=== PATIENT | female | born 1935 | race Caucasian/White ===

== ENCOUNTER 2016-12-27 10:05 | Emergency (ER) | payer OTHER ==
[~2016-12-27] VITALS: Ht 170.2 cm; Wt 42.0 kg
[~2016-12-27 10:05] MED LIST: ACET-1256 PO; ATV/1 PO; DLN100 PO; MECL1TAB40 PO; PHEN32.44 PO; ZNTT/150 PO; [UNRECOGNIZED DRUG - CODE] PO
[2016-12-27 10:07] VITALS: Ht 170.2 cm; Wt 42.0 kg
[2016-12-27] MEDS ORDERED: SODIUM CHLORIDE 0.9% 500ML 500 ML IV STA ×2 (10:23→13:34)
[2016-12-27 10:52] LABS: BASO % 0.1 %; BASO ABS # 0.01 K/uL (0-0.2); COMPLETE YES; EOS % 0.6 %; HEMATOCRIT 41.2 % (37-47); IG% 0.5 %; LYMPH % 19.2 %; LYMPH ABS # 1.84 K/uL (1.2-3.4); MEAN CELL VOLUME 100.5 fL (80-100); MEAN CORPUSCULAR HEMOGLOBIN 34.6 pg (25-34); MEAN CORPUSCULAR HGB CONC 34.5 g/dl (32-36); MEAN PLATELET VOLUME 9.1 fL (7.4-10.4); MONO % 10.7 %; NEUT % 68.9 %; PLATELET COUNT 359 K/uL (130-400)
[2016-12-27 11:24] LABS: BUN/CREATININE RATIO 5.3 (10-20); CREATININE 0.74 mg/dl (0.60-1.20)
[2016-12-27 11:25] LABS: CALCIUM 8.7 mg/dl (8.5-10.1)
[2016-12-27 11:36] LABS: PHENOBARBITAL 19.1 mcg/mL (15.0-40.0)
[2016-12-27 13:18] LABS: URINE APPEARANCE CLEAR (CLEAR); URINE BILIRUBIN NEG (NEG); URINE COLOR YELLOW; URINE NITRITE NEG (NEG); URINE SPECIFIC GRAVITY 1.007 (1.000-1.030); UROBILINOGEN NEG (NEG); ZZUR CULT IF INDIC CLEAN CATCH NO
[2016-12-27 13:22] LABS: MANUAL MICROSCOPIC REQUIRED? NO; REVIEW REQ? NO
[2016-12-27] MEDS ORDERED: METRONIDAZOLE 250 MG TAB PO STA (14:34)
[2016-12-27] MEDS ORDERED: POTASSIUM CHLORIDE 20 MEQ TABCR PO STA (14:34)
[2016-12-27] MEDS ORDERED: POTA20TA16 PO (14:38)
[2016-12-27] MEDS ORDERED: METR-163 PO (14:38)
--- NOTE | 2016-12-27 14:39 | EMERGENCY ROOM VISIT NOTE ---
History Report prepared by Jb: Lynn Jain Under the Supervision of: Dr. Bryan Childs M.D. First contact with patient: 10:15 Chief Complaint: DIARRHEA Stated Complaint: POSSIBLE C DIFF PER DR MCCABE History of Present Illness The patient is an 81 year old female who presents to the Emergency Room with complaints of an episode of diarrhea starting nine days ago. The patient complains of abdominal pain and worsening weakness. She reports that she went to [facility] and states that they gave her Imodium. She reports that she has been having an episode of diarrhea every 20 minutes that is caramel in color and produces about 2 ounces each time. She states that the episodes have started to slacken off, but that she is still wearing a diaper. She notes that she is experiencing leg swelling and loss of appetite. The patient denies any fevers or hematochezia. The patient notes that she thinks she was on an antibiotic six months ago for bronchitis. Source of History: patient Onset: nine days ago Position: other (global) Quality: other (global) Timing: other (episode) Associated Symptoms: + abdominal pain, + weakness, No fevers, No hematochezia Note: The patient complains of leg swelling and loss of appetite. Review of Systems See HPI for pertinent positives & negatives. A total of 10 systems reviewed and were otherwise negative. Past Medical & Surgical Medical Problems: (1) Irritable bowel disease Family History Patient reports no known family medical history. Social History Smoking Status: Current Every Day Smoker Housing Status: lives with family Occupation Status: retired Current/Historical Medications Scheduled Iron W/ Vitamins (Geritol Tonic), 1 DOSE PO DIRECTED Metronidazole (Flagyl), 500 MG PO TID Phenobarbital (Phenobarbital), 32.4 MG PO TID Phenytoin Sodium (Dilantin), 1 CAP PO TID Potassium Ext Rel (Klor-Con), 20 MEQ PO DAILY Ranitidine (Zantac), 150 MG PO DAILY Scheduled PRN Acetaminophen (Tylenol), 500 MG PO DIRECTED PRN for Pain Lorazepam (Ativan), 0.5-1 MG PO DAILY PRN for Anxiety/Agitation Meclizine HCl (Meclizine HCl), 1 TAB PO TID PRN for Dizziness or Vertigo Allergies Coded Allergies: Cephalosporins (Verified Allergy, Severe, HIVES, SWEATS, CHEST PAIN, NAUSEA, 12/27/16) Clarithromycin (Verified Allergy, Severe, ANGIOEDEMA, 12/27/16) Sulfa Antibiotics (Verified Allergy, Severe, HIVES, 12/27/16) Tramadol (Verified Allergy, Severe, "HEART POUNDS", SWEATS, 12/27/16) Ciprofloxacin (Verified Allergy, Intermediate, DIZZINESS, BAD DREAMS, 12/27) Ondansetron (Verified Allergy, Intermediate, VOMITING, 12/27/16) Uncoded Allergies: MOZERELLA CHEESE (Allergy, Severe, HIVES, 04/30/16) Physical Exam Vital Signs Date Time Temp Pulse Resp B/P (MAP) Pulse Ox O2 Delivery O2 Flow Rate FiO2 12/27/16 15:08 36.7 60 16 172/85 96 12/27/16 14:55 60 16 172/85 96 Room Air 12/27/16 13:15 67 18 163/82 12/27/16 11:15 85 18 173/85 96 12/27/16 10:07 36.7 86 18 160/88 97 Room Air Physical Exam GENERAL: Patient is elderly and angry appearing, in no acute distress. HEENT: No acute trauma, normocephalic atraumatic, mucous membranes are dry, no nasal congestion, no scleral icterus. NECK: No stridor, no adenopathy, no meningismus, trachea is midline. LUNGS: No dyspnea. Clear to auscultation and equal bilaterally. No wheeze, no rhonchi. HEART: Regular rate and rhythm. No murmurs, rubs, gallops appreciated. ABDOMEN: Soft, nontender, bowel sounds positive, no masses appreciated, no peritonitis. BACK: No midline tenderness, no CVA tenderness EXTREMITIES: Normal motion all extremities, no cyanosis, no edema. NEUROLOGIC: Alert and oriented, no acute motor or sensory deficits, no focal weakness, cranial nerves grossly intact. SKIN: No rash, no jaundice, no diaphoresis. Medical Decision & Procedures Laboratory Results 12/27/16 10:45 Red Blood Count 4.10, Mean Corpuscular Volume 100.5, Mean Corpuscular Hemoglobin 34.6, Mean Corpuscular Hemoglobin Concent 34.5, Mean Platelet Volume 9.1, Neutrophils (%) (Auto) 68.9, Lymphocytes (%) (Auto) 19.2, Monocytes (%) ( Auto) 10.7, Eosinophils (%) (Auto) 0.6, Basophils (%) (Auto) 0.1, Neutrophils # (Auto) 6.61, Lymphocytes # (Auto) 1.84, Monocytes # (Auto) 1.03, Eosinophils # ( Auto) 0.06, Basophils # (Auto) 0.01 12/27/16 10:45 Test 12/27/16 10:45 12/27/16 12:15 White Blood Count 9.60 K/uL (4.8-10.8) Red Blood Count 4.10 M/uL (4.2-5.4) Hemoglobin 14.2 g/dL (12.0-16.0) Hematocrit 41.2 % (37-47) Mean Corpuscular Volume 100.5 fL (80-100) Mean Corpuscular Hemoglobin 34.6 pg (25-34) Mean Corpuscular Hemoglobin Concent 34.5 g/dl (32-36) Platelet Count 359 K/uL (130-400) Mean Platelet Volume 9.1 fL (7.4-10.4) Neutrophils (%) (Auto) 68.9 % Lymphocytes (%) (Auto) 19.2 % Monocytes (%) (Auto) 10.7 % Eosinophils (%) (Auto) 0.6 % Basophils (%) (Auto) 0.1 % Neutrophils # (Auto) 6.61 K/uL (1.4-6.5) Lymphocytes # (Auto) 1.84 K/uL (1.2-3.4) Monocytes # (Auto) 1.03 K/uL (0.11-0.59) Eosinophils # (Auto) 0.06 K/uL (0-0.5) Basophils # (Auto) 0.01 K/uL (0-0.2) RDW Standard Deviation 47.2 fL (36.4-46.3) RDW Coefficient of Variation 13.0 % (11.5-14.5) Immature Granulocyte % (Auto) 0.5 % Immature Granulocyte # (Auto) 0.05 K/uL (0.00-0.02) Anion Gap 8.0 mmol/L (3-11) Est Creatinine Clear Calc Drug Dose 38.9 ml/min Estimated GFR () 87.4 Estimated GFR (Non- 75.4 BUN/Creatinine Ratio 5.3 (10-20) Calcium Level 8.7 mg/dl (8.5-10.1) Phenytoin (Dilantin) Level 9.7 mcg/mL (10-20) Phenobarbital Level 19.1 mcg/mL (15.0-40.0) Urine Color YELLOW Urine Appearance CLEAR (CLEAR) Urine pH 8.0 (4.5-7.5) Urine Specific [place] 1.007 (1.000-1.030) Urine Protein NEG (NEG) Urine Glucose (UA) NEG (NEG) Urine Ketones NEG (NEG) Urine Occult Blood NEG (NEG) Urine Nitrite NEG (NEG) Urine Bilirubin NEG (NEG) Urine Urobilinogen NEG (NEG) Urine Leukocyte Esterase NEG (NEG) Urine WBC (Auto) 0 /hpf (0-5) Urine RBC (Auto) 0-4 /hpf (0-4) Urine Hyaline Casts (Auto) 0 /lpf (0-5) Urine Epithelial Cells (Auto) 5-10 /lpf (0-5) Urine Bacteria (Auto) NEG (NEG) Date/Time Source Procedure Growth Status 12/27/16 12:15 Stool C.difficile Toxin B Gene (PCR) - Final Positive for C. difficile toxin B gene Complete Laboratory results as reviewed by me. Medications Administered Medications (Trade) Dose Ordered Sig/Car Route Start Time Stop Time Status Last Admin Dose Admin Sodium Chloride 500 ml @ 999 mls/hr Q31M STAT IV 12/27/16 10:23 12/27/16 10:53 DC 12/27/16 10:23 999 MLS/HR Sodium Chloride 500 ml @ 999 mls/hr Q31M STAT IV 12/27/16 13:34 12/27/16 14:04 DC 12/27/16 13:34 999 MLS/HR Metronidazole (Flagyl Tab) 500 mg NOW STAT PO 12/27/16 14:34 12/27/16 14:35 DC 12/27/16 14:53 500 MG Potassium Chloride (Klor-Con M10) 20 meq NOW STAT PO 12/27/16 14:48 12/27/16 14:49 DC 12/27/16 14:48 20 MEQ ED Course 1015: The patient was evaluated in room B5. A complete history and physical exam was performed. 1023: Ordered NSS 500 ml @ 999 mls/hr IV. 1124: I reevaluated the patient. She is resting comfortably. She is currently unable to provide stool or a urine sample at this time, but will try again. 1333: I reevaluated the patient. She is happy and smiling. She is thanking us for our care. I decided we would give her more IV fluids and await the stool samples results. 1334: Ordered NSS 500 ml @ 999 mls/hr IV. 1424: Discussed the patient's case with Dr. Chelo Carlson. She would feel comfortable with the patient going home if the patient can ambulate safely. 1434: Ordered Potassium Chloride 20 meq PO, Flagyl Tab 500 mg PO. 1436: Reevaluated the patient. She is smiling, happy, and looking forward to going home. She feels that she can get around home safely. She notes that she has previously been on Flagyl without any problems. Discussed results and discharge instructions: She verbalized understanding and agreement. The patient is ready for discharge. Medical Decision Medication Reconciliation: I attest that I have personally reviewed the patient 's current medication list. Blood pressure screening: Patient was found to have an elevated blood pressure and was referred to their primary doctor for recheck and further treatment. Differential: Viral, Bacterial, Parasitic, Iatrogenic, C-Diff, Malabsorption, Irritable Bowel Disease, IBS, Ischemic Bowel, amongst other pathologies entertained. 81 yr old frail woman who initially was a bit agitated that she was told to come to ED though by end of stay in good spirits and feeling well. She actually looks much better with some IV fluids and I feel she was somewhat dehydrated from the diarrhea she has been having. She has not clear risk factors for Cdiff but with symptoms felt reasonable testing, though did by exam and story seem low risk. Labs look good other than some mild HypoK and some difficulty obtaining suitable stool sample. After a few hours Cdiff did return positive. Discussed need for prolonged treatment. Discussed with Clinical Pharmacist who feels that flagyl 500 tid should be acceptable in this patient. I reviewed side effects of Flagyl with patient. She is stable, feels well, no abdominal pain nor TTP, normal labs and in no distress. I feel she is safe for discharge. Patient feels she will be perfectly fine at home. I have made it clear she can return at any time if worsening or other concerns. I discussed cause with her PCP to make her aware as well. Consults Time Called: [id number] Consulting Physician: Dr. Chelo Carlson Returned Call: [phone] Discussed the patient's case with Dr. Chelo Carlson. She would feel comfortable with the patient going home if the patient can ambulate safely. Impression Primary Impression: Clostridium difficile diarrhea Additional Impressions: Hypokalemia Hypertension Scribe Attestation The scribe's documentation has been prepared under my direction and personally reviewed by me in its entirety. I confirm that the note above accurately reflects all work, treatment, procedures, and medical decision making performed by me. Departure Information Dispostion Home / Self-Care Prescriptions Metronidazole (Flagyl) 500 Mg Tab 500 MG PO TID for 14 Days, #42 TAB Prov: Bryan Childs M.D. 12/27/16 Potassium Ext Rel (Klor-Con) 20 Meq Tabcr 20 MEQ PO DAILY for 5 Days, #5 TAB Prov: Bryan Childs M.D. 12/27/16 Referrals Jason Baker PA-C (PCP) Forms HOME CARE DOCUMENTATION FORM, IMPORTANT VISIT INFORMATION, WORK / SCHOOL INSTRUCTIONS Patient Instructions Clostridium Difficile Infec, [facility] Additional Instructions Your blood pressure was elevated during this visit. This is quite common in many people who are being evaluated in the Emergency Department for many reasons. However, it is important that you have your Primary Care Provider recheck your blood pressure and discuss whether treatment will be needed. 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 If you develop severe headaches, chest pain, weakness in arms or legs, or other concerning symptoms call 911. Your potassium was slightly low this visit. This is likely due to your diarrhea. We will treat you will Potassium Supplements for the next 5 days. Problem Qualifiers
[2016-12-27] MEDS ORDERED: POTASSIUM CHLORIDE 10 MEQ TABCR PO STA (14:48)
[2016-12-27 15:08] VITALS: BP 172/85; PULSE 60; TEMP 36.7; O2SAT 96
== END 2016-12-27 15:09 | disposition home or self-care (01) ==
LOC: C.EDB 10:07
DX: A04.7 Enterocolitis due to Clostridium difficile (principal); E87.6 Hypokalemia; I10 Essential (primary) hypertension; F17.200 Nicotine dependence, unspecified, uncomplicated; K58.9 Irritable bowel syndrome, unspecified